=== PATIENT | female | born 1960 | race Caucasian/White ===

== ENCOUNTER 2024-04-19 08:51 | Inpatient (IN) | payer OTHER ==
[2024-04-19 09:33] VITALS: BMI 23.0
[2024-04-19] MEDS ORDERED: MAG HYDROX/AL HYDROX/SIMETH 30 ML UNIT-DOSE CUP PO PRN (09:51)
[2024-04-19] MEDS ORDERED: MAGNESIUM HYDROX 2400MG/30ML ORAL SUSPENSION 30 ML CUP PO PRN (09:51)
[2024-04-19] MEDS ORDERED: NICOTINE POLACRILEX 2 MG LOZENGE BC PRN (09:51)
[2024-04-19] MEDS ORDERED: NALOXONE HCL 0.4 MG/ML VIAL IM PRN (09:51)
[2024-04-19] MEDS ORDERED: BISMUTH SUBSALICYLATE 524 MG/30 ML PO PRN (09:51)
[2024-04-19] MEDS ORDERED: P-EPHED 60MG/TRIPROLIDI 2.5MG TABLET PO PRN (09:51)
[2024-04-19] MEDS ORDERED: NALOXONE (NARCAN) HCL 4 MG/0.1 ML SPRAY NS PRN (09:51)
[2024-04-19] MEDS ORDERED: IBUPROFEN 400 MG TABLET (FP) PO PRN (09:51)
[2024-04-19] MEDS ORDERED: POLYETHYLENE GLYCOL (HEALTHYLAX) 3350 17 GM PACKET PO PRN (09:51)
[2024-04-19] MEDS ORDERED: BENZONATATE 200 MG CAPSULE PO PRN (09:51)
[2024-04-19] MEDS ORDERED: ACETAMINOPHEN 325 MG TABLET (FP) PO PRN (09:51)
[2024-04-19] MEDS ORDERED: BENZOCAINE/MENTHOL (CHLORASEPTIC ) LOZENGE MM PRN (09:51)
[2024-04-19] MEDS ORDERED: NICOTINE POLACRILEX 2 MG GUM BUC PRN (09:51)
[2024-04-19] MEDS ORDERED: PRENATAL VITAMINS W/ FOLIC ACID TABLET (FP) PO ONE (10:35)
[2024-04-19] MEDS: PRENATAL VITAMINS W/ FOLIC ACID TABLET (FP) PO SCH (10:38)
[2024-04-19] MEDS: BUDESONIDE/FORMETEROL FUMARATE 160/4.5 mcg INHALER IH SCH (11:00)
[2024-04-19] MEDS: IBUPROFEN 600 MG TABLET (FP) PO PRN (18:13)
[2024-04-19] MEDS: guaiFENesin 600 MG TABLET.ER (FP) PO PRN (18:13)
[2024-04-19] MEDS: THIAMINE 100 MG TABLET PO SCH (22:08)
[2024-04-19] MEDS: MELATONIN 5 MG TABLETS PO SCH (22:08)
[2024-04-19] MEDS: ATORVASTATIN CA 10 MG TABLET (FP) PO SCH (22:08)
[2024-04-19] MEDS: ALBUTEROL SO4 HFA INHALER IH PRN (22:09)
[2024-04-20] MEDS: PANTOPRAZOLE 20 MG TABLET PO SCH (07:18)
[2024-04-20] MEDS: VALSARTAN 160 MG TABLET PO SCH (09:09)
[2024-04-20] MEDS: BICTEGRAV/EMTRICIT/TENOFOV (BIKTARVY) 50-200-25 MG TABLET PO SCH (09:10)
[2024-04-20] MEDS: methaDONE HCL 10 MG TABLET (FOR DETOX USE ONLY) PO ONE (10:54)
[2024-04-20 11:40] LABS: HEMATOCRIT 38.2 % (32.4-45.2); HEMOGLOBIN 12.6 GM/dL (10.7-15.3); MCH 30.1 pg (25.7-33.7); MEAN CELL VOLUME 91.2 fl (80-96); MEAN PLT VOLUME 8.9 fl (7.5-11.1); PLATELET COUNT 343 10^3/uL (134-434); POTASSIUM 3.6 mmol/L (3.5-5.1); RBC 4.19 M/mm3 (3.60-5.2); RDW 14.2 % (11.6-15.6); WHITE BLOOD COUNT 11.1 K/mm3 (4.0-10.0)
[2024-04-20 11:46] LABS: BLOOD UREA NITROGEN 21.9 mg/dL (7-18)
[2024-04-20 11:49] LABS: CREATININE 1.2 mg/dL (0.55-1.3)
[2024-04-20 11:50] LABS: BILIRUBIN,TOTAL 0.5 mg/dL (0.2-1); TOT PROT 8.1 g/dl (6.4-8.2)
[2024-04-20] MEDS: cloNIDine HCL 0.1 MG TABLET PO PRN (20:02)
[2024-04-21] MEDS: LOPERAMIDE HCL 2 MG CAPSULE PO PRN (09:07)
[2024-04-21] MEDS: ONDANSETRON *ODT* 4 MG TABLET SL PRN (17:56)
[2024-04-22] MEDS: methaDONE HCL 10 MG TABLET (FOR DETOX USE ONLY) PO ONE (09:27)
[2024-04-22] MEDS: metFORMIN HCL 500 MG TABLET (FP) PO ONE (10:51)
[2024-04-22] MEDS: QUEtiapine FUMARATE 25 MG TABLET PO SCH (22:15)
[2024-04-23 13:54] LABS: BASO % 0.6 % (0-2.0); EOS % 1.6 % (0-4.5); HEMATOCRIT 35.1 % (32.4-45.2); HEMOGLOBIN 11.7 GM/dL (10.7-15.3); LYMPH % 37.6 % (8-40); MCH 30.4 pg (25.7-33.7); MCHC 33.5 g/dl (32.0-36.0); MEAN CELL VOLUME 90.6 fl (80-96); MEAN PLT VOLUME 8.9 fl (7.5-11.1); MONO % 7.5 % (3.8-10.2); NEUT % 52.7 % (42.8-82.8); PLATELET COUNT 301 10^3/uL (134-434); RBC 3.87 M/mm3 (3.60-5.2)
[2024-04-24] MEDS: methaDONE HCL 10 MG TABLET (FOR DETOX USE ONLY) PO ONE (09:28)
[2024-04-24 09:48] VITALS: RESP 16
[2024-04-24] MEDS: amLODIPine BESYLATE 5 MG TABLET (FP) PO SCH (09:49)
[2024-04-24] MEDS: FLUTICASONE PROP 0.05% 16 GM NASAL SPRAY NS SCH (10:57)
[2024-04-24] MEDS ORDERED: hydrALAZINE HCL 10 MG TABLET PO ONE (18:51)
[2024-04-24] MEDS: hydrALAZINE HCL 10 MG TABLET PO ONE (20:54)
[2024-04-25 07:14] VITALS: BP 138/72; PULSE 69; TEMP 97.8
== END 2024-04-25 09:30 | disposition home or self-care (01) | DRG 897 ==
LOC: YASAS 08:51 → Y6N 10:05
PROVIDERS: ADMIT Allergy & Immunology; ATTEND Surgery
PROC: HZ2ZZZZ Detoxification Services for Substance Abuse Treatment (ICD-10-PCS; principal; 2024-04-19)
DX: F11.23 Opioid dependence with withdrawal (principal); F17.210 Nicotine dependence, cigarettes, uncomplicated; Z21 Asymptomatic human immunodeficiency virus [HIV] infection status; E78.5 Hyperlipidemia, unspecified; I10 Essential (primary) hypertension; E11.9 Type 2 diabetes mellitus without complications; Z79.84 Long term (current) use of oral hypoglycemic drugs; K21.9 Gastro-esophageal reflux disease without esophagitis; R19.7 Diarrhea, unspecified; R09.81 Nasal congestion; Z79.899 Other long term (current) drug therapy
CPT/HCPCS: 36415; 80053; 80305; 80307; 82962; 83036; 85025; 85027; 86780; 93005; 93010; Q0162